=== PATIENT | female | born 1975 | race Caucasian/White ===

== ENCOUNTER → 2016-09-24 16:54 | Outpatient (CLI) | payer OTHER | END | disposition home or self-care (01) | LOC: D.US 13:30 | DX: N63 Unspecified lump in breast (principal) ==

== ENCOUNTER 2017-04-25 05:24 | Day surgery (SDC) | payer OTHER ==
--- NOTE | ~2017-04-25 | OP ---
PATIENT NAME: LALO MOLINA MEDICAL RECORD: [id number] LOCATION:[facility] ADMISSION DATE: SURGEON: FERNANDO PHILLIPS MD DATE OF OPERATION: 04/25/2017 PREOPERATIVE DIAGNOSIS: Bilateral breast cysts. POSTOPERATIVE DIAGNOSIS: Bilateral breast cysts. PROCEDURE: Ultrasound-guided aspiration of bilateral breast cysts. SURGEON: Fernando Phillips MD REPORT OF PROCEDURE: The bilateral breasts were prepped and draped in sterile fashion. We approached the left breast first. At about the 2-3 o'clock position, there was a cluster of 3 cysts that were present in that area. We were able to aspirate all 3 of these cysts and remove the fluid until the cysts were completely obliterated. At the conclusion of this, there was no sign of any bleeding from the left breast. The fluid that was removed was a serous appearing fluid that was a greenish color. There was no sign of any purulence noted. We then approached the right breast. There was a large cyst present at the 6 o'clock position. This large cyst was aspirated and approximately 13 mL of fluid was removed. Again, this was a tejada-colored fluid with no sign of any purulence. The cyst was completely obliterated with removal of the fluid. There was also one more small cyst present at about the 9 o'clock position on the right breast. This was aspirated and about 2 cc of fluid was removed. Again, tejada fluid with no sign of any purulence. At this point, the breast was cleaned off and inspected and there was no sign of any bleeding. COMPLICATIONS: None. CONDITION: Stable. ANESTHESIA: TIVA. BLOOD LOSS: Minimal. TRANSINT:[id number] Voice Confirmation ID: [id number] DOCUMENT ID: [id number] FERNANDO PHILLIPS MD at 1319 CC: [id number] DICTATION DATE: 04/25/17 0820 CEMENT PAVER: 04/25/17 0909 [facility] 04/25/[address] [id number]
[2017-04-25 06:24] LABS: BASOPHILS 0.8 % (0-2); EOSINOPHILS 2.9 % (0-7); HEMATOCRIT 40.9 % (36.0-48.0); HEMOGLOBIN 13.6 g/dL (12-16); IMMATURE GRANULOCYTES 0.1 % (0-5); LYMPHOCYTES 34.1 % (15-50); MCH 31.3 pg (26.0-34.0); MCHC 33.3 g/dL (31.0-37.0); MEAN PLATELET VOLUME 11.1 fL (7.4-10.4); MONOCYTES 6.2 % (2-11); NEUTROPHILS 55.9 % (40-80); PLATELET COUNT 301 10x3/uL (130-400); RBC 4.35 10x6/uL (4.00-5.40); WBC 7.1 10x3/uL (4.8-10.8)
[2017-04-25 06:59] LABS: CALC OSMOLALITY 271 mosm/kg (275-300); CALCIUM 8.1 mg/dL (8.5-10.1); CARBON DIOXIDE 21.2 mmol/L (21.0-32.0); CHLORIDE - SERUM 105 mmol/L (98-107); CREATININE - SERUM 0.7 mg/dL (0.6-1.3); GLUCOSE 97 mg/dL (74-106); POTASSIUM - SERUM 3.6 mmol/L (3.5-5.1); SODIUM 137 mmol/L (136-145); UREA NITROGEN 7 mg/dL (7-18); eGFR NON AFRICAN AMERICAN > 90 mL/min (90-120)
[2017-04-25 07:02] VITALS: BP 101/65; BMI 29.2
[2017-04-25] MEDS ORDERED: HYDROCODON-ACE1 EAC7 PO (08:16)
== END 2017-04-25 10:20 | disposition home or self-care (01) ==
LOC: D.OPS 05:24
PROVIDERS: Surgery
DX: N60.02 Solitary cyst of left breast (principal); N60.01 Solitary cyst of right breast; Z01.812 Encounter for preprocedural laboratory examination